=== PATIENT | male | born 1995 | race Caucasian/White ===

== ENCOUNTER → 2017-07-04 | Outpatient (CLI) | payer BC ==
[2013-07-13 09:40] VITALS: BP 127/72
[~2017-07-04] MED LIST: NS 250 ML IV 250 ML IV ONE
--- NOTE | 2017-07-04 12:50 | CT ---
Examination: CT of the abdomen and pelvis with contrast. Clinical History: Dysuria, abdominal pain, anorexia. Technique: Multiple axial images were obtained from the lung bases down to the pubic symphysis follow ing the intravenous administration of 100 ml of Omnipaque 350. Oral contrast was also administered. D ose reduction techniques including automated exposure control (AEC) and adjustment of mA and kV were utilized. Comparison: None available. Findings: The visualized portion of the lung bases is unremarkable. Surgical clips are noted in the gallbladder fossa, consistent with a prior cholecystectomy. The liver, spleen, pancreas, adrenal glands and kidneys are normal in appearance. The abdominal aorta is normal in caliber. There is a lack of intra-abdominal fat, which reduces the sensitivity in the evaluation of an acute i nflammatory or infective intra-abdominal process. The bowel gas pattern is non-obstructive. There is no free air. The colon is within normal limits. A large amount of stool is noted in the colon. The small bowel is grossly unremarkable. The appendix is not visualized. The bladder, prostate and seminal vesicles are within normal limits. No pelvic mass or fluid collection is noted. No enlarged lymph nodes, by CT criteria, are noted in the mesenteric, periaortic or deep pelvic regio ns. There is a minor lumbar scoliosis seen convex to the left, which may be positional in nature. No acut e osseous abnormality is noted. Impression: 1. No acute intra-abdominal pathology is noted. 2. A large amount of stool is noted in the colon. 3. There are postsurgical changes from a prior cholecystectomy. Reported By:
== END ==
LOC: RAD 11:01
PROVIDERS: ATTEND Internal Medicine
DX: R63.0 Anorexia (principal); R30.0 Dysuria; R10.84 Generalized abdominal pain
CPT/HCPCS: 74177; A4222